=== PATIENT | male | born 1960 | race Caucasian/White ===

== ENCOUNTER 2021-05-24 07:33 | Day surgery (SDC) | payer OTHER ==
[2021-05-21 11:05] VITALS: BMI 28.1
[2021-05-24] MEDS ORDERED: MIDAZOLAM HCL 2 MG/2 ML SINGLE DOSE VIAL ONE ×2 (08:52)
[2021-05-24] MEDS ORDERED: ROPIVACAINE HCL 0.5% 30ML VIAL ONE (09:30)
[2021-05-24] MEDS ORDERED: BUPIVACAINE HCL/PF 0.25% (2.5MG/ML) 10 ML VIAL ONE (09:30)
[2021-05-24] MEDS ORDERED: PROPOFOL 20 ML ONE ×6 (09:31→15:41)
[2021-05-24] MEDS ORDERED: fentaNYL CITRATE 250 MCG/5 ML VIAL ONE (09:31)
[2021-05-24] MEDS ORDERED: EPINEPHrine/PF 1 MG/1 ML (1:1,000) AMPULE ONE (09:53)
[2021-05-24] MEDS ORDERED: BUPIVACAINE HCL/PF 2.5 MG/ML - 30 ML VIAL IJ ONE (09:55)
[2021-05-24] MEDS ORDERED: oxyCODONE HCL 5 MG TABLET PO PRN (12:07)
[2021-05-24] MEDS ORDERED: ONDANSETRON 4 MG/2 ML VIAL IVPUSH PRN (12:07)
[2021-05-24] MEDS ORDERED: ACETAMINOPHEN 1000 MG/100 ML VIAL IVPB ONE (12:08)
[2021-05-24] MEDS ORDERED: LACTATED RINGERS SOLUTION 1,000 ML IV SCH (12:15)
[2021-05-24] MEDS ORDERED: ONDANSETRON 4 MG/2 ML VIAL ONE (14:09)
[2021-05-24] MEDS ORDERED: ceFAZolin SODIUM 1 GM VIAL ONE (14:09)
[2021-05-24] MEDS ORDERED: DEXAMETHASONE SOD PHOSPHATE 4 MG/1 ML VIAL ONE (14:09)
[2021-05-24 14:33] VITALS: BP 130/80; PULSE 66; TEMP 97.8
== END 2021-05-24 14:33 | disposition home or self-care (01) ==
LOC: FASU 07:33
PROVIDERS: ATTEND Orthopaedic Surgery
PROC: 0RBK4ZZ Excision of Left Shoulder Joint, Percutaneous Endoscopic Approach (ICD-10-PCS; principal; 2021-05-24 10:48)
PROC: 0LS40ZZ Reposition Left Upper Arm Tendon, Open Approach (ICD-10-PCS; 2021-05-24 10:48)
DX: S43.432A Superior glenoid labrum lesion of left shoulder, initial encounter (principal); X58.XXXA Exposure to other specified factors, initial encounter; Y93.9 Activity, unspecified; Y92.9 Unspecified place or not applicable; M75.22 Bicipital tendinitis, left shoulder; M65.812 Other synovitis and tenosynovitis, left shoulder; M75.02 Adhesive capsulitis of left shoulder; M75.52 Bursitis of left shoulder
CPT/HCPCS: 88304-TC; 94760; J0131

== ENCOUNTER 2023-11-26 04:25 | Day surgery (SDC) | payer OTHER ==
[2023-11-23 13:23] VITALS: BMI 28.4
[2023-11-26 10:13] VITALS: TEMP 97.5
[2023-11-26 10:41] VITALS: RESP 16
[2023-11-26 10:43] VITALS: BP 116/78; PULSE 65
== END 2023-11-26 11:05 | disposition home or self-care (01) ==
LOC: JASU-ENDO 04:25
PROVIDERS: ATTEND Internal Medicine Gastroenterology
PROC: 0DBL8ZX Excision of Transverse Colon, Via Natural or Artificial Opening Endoscopic, Diagnostic (ICD-10-PCS; principal; 2023-11-26 08:45)
DX: Z12.11 Encounter for screening for malignant neoplasm of colon (principal); K63.5 Polyp of colon; K57.30 Diverticulosis of large intestine without perforation or abscess without bleeding; Z86.010 Personal history of colon polyps
CPT/HCPCS: 88305-TC